=== PATIENT | male | born 1985 | race Caucasian/White ===

== ENCOUNTER 2021-06-09 23:03 | Emergency (ER) | payer BC ==
[~2021-06-09] VITALS: Ht 195.6 cm; Wt 197.3 kg
[2021-06-10] MEDS ORDERED: MAG HYDROX/AL HYDROX/SIMETH 30 ML UDC PO ONE
[2021-06-10] MEDS ORDERED: LIDOCAINE VISCOUS 2% UD 15 ML UDC MM ONE
[2021-06-10] MEDS ORDERED: FAMOTIDINE (20 MG) 20 MG TABLET PO ONE
[2021-06-10 00:22] LABS: BASOPHILS # (AUTO) 0.1 K/uL (0.0-0.2); BASOPHILS % (AUTO) 0.5 % (0.0-2.0); HEMATOCRIT 48 % (39-51); HEMOGLOBIN 16.1 g/dL (13.5-17.5); LYMPHOCYTES # (AUTO) 3.9 K/uL (0.8-4.8); LYMPHOCYTES % (AUTO) 30.3 % (20.0-44.0); MEAN CORPUSCULAR HGB CONC 33 g/dl (31.0-36.0); MEAN CORPUSCULAR VOLUME 90 fL (80-96); MONOCYTES % (AUTO) 7.5 % (2.0-12.0); NEUTROPHILS # (AUTO) 7.9 K/uL (1.8-8.9); NEUTROPHILS % (AUTO) 60.7 % (43.0-81.0); PLATELET COUNT (AUTO) 261 K/uL (150-450); RED BLOOD CELL COUNT(AUTO) 5.34 MIL/uL (4.5-6.0)
[2021-06-10] MEDS ORDERED: LIDOCAINE VISCOUS 2% UD 15 ML UDC ONE (00:39)
[2021-06-10] MEDS ORDERED: MAG HYDROX/AL HYDROX/SIMETH 30 ML UDC ONE (00:39)
[2021-06-10] MEDS ORDERED: FAMOTIDINE (20 MG) 20 MG TABLET ONE (00:40)
[2021-06-10 01:22] LABS: CREATININE 0.9 mg/dL (0.6-1.3)
[2021-06-10 01:28] LABS: ALBUMIN 3.8 g/dL (3.4-5.0); BILIRUBIN,DIRECT 0.1 mg/dL (0.0-0.2); BILIRUBIN,TOTAL 0.3 mg/dL (0.2-1.0)
[2021-06-10] MEDS ORDERED: FAMO-131 PO (01:41)
[2021-06-10] MEDS ORDERED: MAG-55 PO (01:41)
--- NOTE | 2021-06-10 01:47 | NUR ---
Patient discharged to home in stable condition. Written and verbal after care instructions given. Patient verbalizes understanding of instruction.
[2021-06-10 01:48] VITALS: BP 145/90
== END 2021-06-10 01:48 | disposition home or self-care (01) ==
LOC: ER 23:19
DX: R10.13 Epigastric pain (principal); R11.0 Nausea; I10 Essential (primary) hypertension; Z60.2 Problems related to living alone; Z79.899 Other long term (current) drug therapy
CPT/HCPCS: 36415; 80048-TC; 80076-TC; 83690-TC; 85025-TC